=== PATIENT | female | born 1960 | race Caucasian/White ===

== ENCOUNTER → 2016-09-02 | Outpatient (CLI) | payer BC ==
[~2016-09-02] VITALS: Ht 162.6 cm; Wt 66.7 kg
[~2016-09-02] MED LIST: BIOTIN 5000MCG PO; MAGNESIUM400 M1 PO; VALSARTAN-HCTZ1 EACH PO; VITAMIN D31000 UNIT PO; VITAMIN E400 UNIT PO
== END | disposition home or self-care (01) ==
LOC: AMB 08:10
PROC: 0DJD8ZZ Inspection of Lower Intestinal Tract, Via Natural or Artificial Opening Endoscopic (ICD-10-PCS; principal; 2016-09-02)
DX: Z12.11 Encounter for screening for malignant neoplasm of colon (principal); Z86.010 Personal history of colon polyps; K64.8 Other hemorrhoids; I10 Essential (primary) hypertension; Z68.25 Body mass index [BMI] 25.0-25.9, adult; E66.3 Overweight; Z82.49 Family history of ischemic heart disease and other diseases of the circulatory system; Z83.42 Family history of familial hypercholesterolemia
CPT/HCPCS: 93005; J2250; J3010